=== PATIENT | male | born 1960 | race Caucasian/White ===

== ENCOUNTER 2019-03-05 22:20 | Emergency (ER) | payer OTHER ==
[~2019-03-05] VITALS: Ht 172.7 cm; Wt 108.9 kg
[2019-03-05] MEDS ORDERED: [UNRECOGNIZED DRUG - OTHER] (22:32)
[2019-03-05] MEDS ORDERED: ASPI-605 PO (22:32)
--- NOTE | 2019-03-05 22:41 | NUR ---
MD AT BEDSIDE FOR HX AND PHYSICAL
[2019-03-05] MEDS ORDERED: ASPIRIN 81 MG TAB.CHEW PO ONE (22:45)
[2019-03-05] MEDS ORDERED: NITROGLYCERIN OINT 1 GM PACKET TP ONE ×2 (22:45→22:58)
[2019-03-05] MEDS ORDERED: ASPIRIN 81 MG TAB.CHEW ONE (22:57)
--- NOTE | 2019-03-05 23:00 | NUR ---
LOG SAWYER AT BEDSIDE
--- NOTE | 2019-03-05 23:06 | NUR ---
PT REFUSED LAB TO BE DRAWN REFUSES IV INSERTION REFUSES NITRO- BID ADMINISTRATION PT ABLE TO TOLERATE ASPIRIN PO MEDS PT ON PULSE OX AND MONITORED BP, REFUSES ELECTRODE EKG MONITORING HR AT 86 BP AT 124/89 SPO2 94%
[2019-03-05] MEDS ORDERED: AZITHROMYCIN 250 MG TABLET PO ONE (23:15)
[2019-03-05] MEDS ORDERED: MAG HYDROX/AL HYDROX/SIMETH 30 ML LIQUID UDC PO ONE (23:15)
[2019-03-05] MEDS ORDERED: AZITHROMYCIN 250 MG TABLET ONE (23:18)
[2019-03-05] MEDS ORDERED: MAG HYDROX/AL HYDROX/SIMETH 30 ML LIQUID UDC ONE (23:18)
--- NOTE | 2019-03-05 23:32 | NUR ---
AMA SIGNED BY PT AND CO-SIGNED BY SON (INTERPRETED FOR PT) PT AWARE OF RISKS AND BENEFITS Patient discharged to home in stable conditon. Written and verbal after care instructions given. Patient verbalizes understanding of instructions. AMBULATORY W/ STABLE GAIT ALL BELONGINGS W/ PT
[2019-03-05 23:34] VITALS: BP 124/89
== END 2019-03-05 23:35 | disposition left against medical advice (07) ==
LOC: ER 22:27
DX: R05 Cough (principal); R07.9 Chest pain, unspecified; I50.9 Heart failure, unspecified; Z79.82 Long term (current) use of aspirin; Z79.899 Other long term (current) drug therapy; Z87.891 Personal history of nicotine dependence
CPT/HCPCS: 71045; 93005; A4663; Q0144